=== PATIENT | male | born 1955 | race Caucasian/White ===

== ENCOUNTER 2019-02-17 01:40 | Inpatient (IN) | payer MEDICARE, MEDICAID ==
[~2019-02-17] VITALS: Ht 167.6 cm; Wt 42.0 kg
[2019-02-17 02:49] LABS: Basophils # (auto) 0 uL; Basophils % (auto) 0.2 % (0.0-2.0); Eosinophils # (auto) 0.2 uL; Eosinophils % (auto) 1.8 % (0.0-7.0); Hematocrit 41.1 % (41.0-53.0); Hemoglobin 14.1 g/dL (13.5-17.5); Lymphocytes # (auto) 0.3 uL; Lymphocytes % (auto) 3.5 % (10.0-50.0); Mean Corpuscular Hemoglobin 31.6 pg (28.0-32.0); Mean Corpuscular Hgb Conc. 34.2 g/dL (32.0-36.0); Mean Corpuscular Volume 92.4 fL (80.0-100.0); Monocytes # (auto) 0.2 uL; Monocytes % (auto) 2.3 % (0.0-12.0); Neutrophils # (auto) 8.6 uL; Neutrophils % (auto) 92.2 % (37.0-80.0); Platelet Count (auto) 198 10^3/uL (140-450); Red Blood Cells 4.45 10^6/uL (4.5-5.90); Red Cell Distribution Width 15.4 % (11.8-14.3); White Blood Cell 9.3 10^3/uL (4.4-10.8)
[2019-02-17] MEDS ORDERED: ALBUTEROL SULF 2.5 MG/0.5ML(0.5%) NEB SOLN NEB STA (03:08)
[2019-02-17 03:09] LABS: Partial Thromboplastin Time 45.2 sec (23.64-32.05)
[2019-02-17 03:10] LABS: Alanine Aminotransferase 484 U/L (16-61); Albumin 3.3 g/dL (3.4-5.0); Anion Gap 8 (5-15); Aspartate Aminotransferase 208 U/L (15-37); BUN/Creatinine Ratio 51.9; Blood Urea Nitrogen 27 mg/dL (7-18); Calcium 8.5 mg/dL (8.5-10.1); Carbon Dioxide 25 mmol/L (21-32); Chloride 99 mmol/L (98-107); GFR African American 208 mL/min; GFR Non-African American 172 mL/min; Glucose 90 mg/dL (74-106); Potassium 3.8 mmol/L (3.5-5.1); Sodium 132 mmol/L (136-145)
[2019-02-17 03:14] LABS: INR 5.95 (0.9-1.15)
[2019-02-17 03:15] LABS: Alkaline Phosphatase 402 U/L (45-117); Bilirubin, Total 3.6 mg/dL (0.2-1.0); Total Protein 7.9 g/dL (6.4-8.2)
[2019-02-17] MEDS ORDERED: IPRATROPIUM BROM 0.5 MG/2.5ML INH SOL NEB ONE (03:15)
[2019-02-17 05:55] LABS: Urine Bacteria MANY /hpf (None Seen); Urine Blood Negative /uL (Negative); Urine Hyaline Cast MOD /lpf (0 - 2); Urine Mucus FEW (None Seen); Urine Specific Gravity 1.023 (1.001-1.035); Urine WBC 662 /hpf (0 - 3); Urine WBC Clumps PRESENT /hpf (None Seen)
[2019-02-17] MEDS ORDERED: SODIUM CHLORIDE 0.9% 1,000 ML IV ONE (09:03)
[2019-02-17] MEDS ORDERED: FUROSEMIDE 20 MG/2 ML VIAL IV ONE (09:15)
[2019-02-17] MEDS ORDERED: cefTRIAXone 1GM/50ML D5W 50 ML IV ONE (09:15)
[2019-02-17] MEDS ORDERED: AZITHROMYCIN 500MG/ 250ML 250 ML IV ONE (09:15)
[2019-02-17] MEDS ORDERED: IOHEXOL 300 MG/ML 100ML BOTTLE IJ ONE (10:11)
[2019-02-17] MEDS ORDERED: SACC250C GT (12:32)
[2019-02-17] MEDS ORDERED: GABA300C10 GT (12:32)
[2019-02-17] MEDS ORDERED: AMOX250C3 GT (12:32)
[2019-02-17] MEDS ORDERED: BACL20TA GT (12:32)
[2019-02-17] MEDS ORDERED: SIMV10TA84 GT (12:32)
[2019-02-17] MEDS ORDERED: GEMF600T7 GT (12:32)
[2019-02-17] MEDS ORDERED: HYDR-531 PO (12:32)
[2019-02-17] MEDS ORDERED: IBUP800T24 GT (12:32)
[2019-02-17] MEDS ORDERED: DIAZ10TA3 GT (12:32)
[2019-02-17] MEDS ORDERED: WARF3TAB22 GT (12:32)
[2019-02-17] MEDS ORDERED: POLY33504 GT (12:32)
[2019-02-17] MEDS ORDERED: MORPHINE SULF INJ 2 MG/ML SYRINGE 1ML IV PRN (13:00)
[2019-02-17] MEDS ORDERED: NITROGLYCERIN 0.4 MG SL TAB SL PRN (13:00)
[2019-02-17] MEDS ORDERED: SODIUM CHLORIDE 0.9% 500 ML IV ONE (13:00)
[2019-02-17] MEDS ORDERED: VANCOMYCIN PER PHARMACY 0 MG IV SCH (13:00)
[2019-02-17] MEDS ORDERED: ONDANSETRON HCL 4 MG/2 ML VIAL IV PRN (14:00)
[2019-02-17] MEDS: IPRATROPIUM BROM 0.5 MG/2.5ML INH SOL NEB SCH ×3 (14:17→22:12)
[2019-02-17] MEDS: ALBUTEROL SULF 2.5 MG/0.5ML(0.5%) NEB SOLN NEB SCH ×3 (14:17→22:12)
[2019-02-17] MEDS: D5W/SOD CHL 0.45%/KCL 20MEQ 1,000 ML IV SCH (14:25)
[2019-02-17 14:40] VITALS: BP 96/66
[2019-02-17] MEDS: VANCOMYCIN 1GM/250ML 250 ML IV SCH ×2 (15:42→22:41)
[2019-02-17] MEDS ORDERED: ACETAMINOPHEN 650 MG RECT SUPP PR ONE (16:00)
[2019-02-17] MEDS: PIPERACILLIN-TAZOB 3.375GM 100 ML IV SCH ×2 (18:30→23:39)
[2019-02-17 22:47] VITALS: BP 123/69
[2019-02-17] MEDS: MORPHINE SULFATE 4 MG/ML SYR/VIAL IV PRN (23:31)
[2019-02-18] VITALS (7 sets, daily range): BP systolic 110–133; BP diastolic 58–82
[2019-02-18] MEDS: IPRATROPIUM BROM 0.5 MG/2.5ML INH SOL NEB SCH ×6 (02:08→22:26)
[2019-02-18] MEDS: ALBUTEROL SULF 2.5 MG/0.5ML(0.5%) NEB SOLN NEB SCH ×6 (02:08→22:26)
[2019-02-18] MEDS: VANCOMYCIN 1GM/250ML 250 ML IV SCH ×3 (06:09→21:10)
[2019-02-18 06:25] LABS: Hematocrit 37.9 % (41.0-53.0); Hemoglobin 13.6 g/dL (13.5-17.5); Mean Corpuscular Hemoglobin 32.4 pg (28.0-32.0); Mean Corpuscular Hgb Conc. 35.8 g/dL (32.0-36.0); Mean Corpuscular Volume 90.6 fL (80.0-100.0); Platelet Count (auto) 175 10^3/uL (140-450); Red Blood Cells 4.19 10^6/uL (4.5-5.90); White Blood Cell 9.6 10^3/uL (4.4-10.8)
[2019-02-18 06:36] LABS: Albumin 2.6 g/dL (3.4-5.0); Potassium 3.9 mmol/L (3.5-5.1)
[2019-02-18 06:38] LABS: Basophils % (manual) 0 (0.0-2.0); Blast Cells 0; Eosinophils % (manual) 0 (0-7); Metamyelocytes % 0; Myelocytes % 0; Promyelocytes % 0; Reactive Lymphocytes 0
[2019-02-18 06:42] LABS: BUN/Creatinine Ratio 40.9; Bilirubin, Total 4.1 mg/dL (0.2-1.0); Calcium 8.1 mg/dL (8.5-10.1); Total Protein 7.1 g/dL (6.4-8.2)
[2019-02-18] MEDS ORDERED: INFLUENZA QUAD 2019-2020 0.5ml SYRG IM ONE (07:15)
[2019-02-18] MEDS: PIPERACILLIN-TAZOB 3.375GM 100 ML IV SCH ×4 (07:36→23:19)
[2019-02-18 09:15] LABS: Band Neutrophils % (manual) 36; Lymphocytes % (manual) 7 (10.0-50.0); Monocytes % (manual) 3 (0-12)
[2019-02-18] MEDS: D5W/SOD CHL 0.45%/KCL 20MEQ 1,000 ML IV SCH ×2 (10:00→11:54)
[2019-02-18] MEDS: LACTULOSE 20Gm/30ML SOLN GT SCH (11:53)
[2019-02-18 13:41] LABS: Partial Thromboplastin Time 67.2 sec (23.64-32.05)
[2019-02-18 13:56] LABS: INR 6.99 (0.9-1.15)
[2019-02-18] MEDS: MORPHINE SULFATE 4 MG/ML SYR/VIAL IV PRN (18:42)
[2019-02-18] MEDS ORDERED: FUROSEMIDE 40 MG/4 ML VIAL IV ONE (19:45)
[2019-02-18] MEDS ORDERED: FINA5TAB4 PO (22:19)
[2019-02-19] MEDS: IPRATROPIUM BROM 0.5 MG/2.5ML INH SOL NEB SCH ×6 (02:00→22:31)
[2019-02-19] MEDS: ALBUTEROL SULF 2.5 MG/0.5ML(0.5%) NEB SOLN NEB SCH ×6 (02:00→22:31)
[2019-02-19 04:02] VITALS: BP 115/64
[2019-02-19] MEDS: MORPHINE SULFATE 4 MG/ML SYR/VIAL IV PRN ×2 (05:14→15:37)
[2019-02-19] MEDS: VANCOMYCIN 1GM/250ML 250 ML IV SCH ×2 (05:16→14:00)
[2019-02-19] MEDS: D5W/SOD CHL 0.45%/KCL 20MEQ 1,000 ML IV SCH ×3 (06:00→15:52)
[2019-02-19] MEDS: PIPERACILLIN-TAZOB 3.375GM 100 ML IV SCH ×3 (07:25→17:20)
[2019-02-19 08:00] VITALS: BP 122/69
[2019-02-19] MEDS: LACTULOSE 20Gm/30ML SOLN GT SCH (09:30)
[2019-02-19 10:06] LABS: BUN/Creatinine Ratio 26.1; Calcium 8.6 mg/dL (8.5-10.1)
[2019-02-19 10:15] LABS: Potassium 2.9 mmol/L (3.5-5.1)
[2019-02-19] MEDS ORDERED: FINASTERIDE 5 MG TAB GT ONE (10:30)
[2019-02-19] MEDS ORDERED: POTASSIUM EFFERVESENT TAB 25 MEQ PO ONE (10:30)
[2019-02-19 12:00] VITALS: BP 124/70
[2019-02-19] MEDS ORDERED: Jevity 1.2 Cal/Fiber 1 Liter GT SCH (15:00)
[2019-02-19 16:00] VITALS: BP 129/75
[2019-02-19] MEDS: GEMFIBROZIL 600 MG TAB GT SCH (22:10)
[2019-02-19] MEDS: GABAPENTIN 300 MG CAP GT SCH (22:10)
[2019-02-19] MEDS: BACLOFEN 10 MG TAB GT SCH (22:10)
[2019-02-19] MEDS: DIAZEPAM 5 MG TAB GT SCH (22:10)
[2019-02-19 22:59] VITALS: BP 136/73
[2019-02-19] MEDS ORDERED: VANCOMYCIN 1GM/250ML 250 ML IV SCH (23:00)
[2019-02-20] MEDS: PIPERACILLIN-TAZOB 3.375GM 100 ML IV SCH ×2 (00:07→06:17)
[2019-02-20] MEDS: D5W/SOD CHL 0.45%/KCL 20MEQ 1,000 ML IV SCH ×2 (02:00→13:16)
[2019-02-20] MEDS: ALBUTEROL SULF 2.5 MG/0.5ML(0.5%) NEB SOLN NEB SCH ×3 (02:38→22:24)
[2019-02-20] MEDS: IPRATROPIUM BROM 0.5 MG/2.5ML INH SOL NEB SCH ×3 (02:38→22:24)
[2019-02-20 05:28] VITALS: BP 125/64
[2019-02-20 06:05] LABS: Basophils # (auto) 0 uL; Basophils % (auto) 0.2 % (0.0-2.0); Eosinophils # (auto) 0.1 uL; Eosinophils % (auto) 1.2 % (0.0-7.0); Hematocrit 36.2 % (41.0-53.0); Hemoglobin 12.4 g/dL (13.5-17.5); Lymphocytes # (auto) 0.9 uL; Lymphocytes % (auto) 11.6 % (10.0-50.0); Mean Corpuscular Hemoglobin 31.4 pg (28.0-32.0); Mean Corpuscular Hgb Conc. 34.2 g/dL (32.0-36.0); Mean Corpuscular Volume 91.9 fL (80.0-100.0); Monocytes # (auto) 1.1 uL; Monocytes % (auto) 13.8 % (0.0-12.0); Neutrophils # (auto) 5.7 uL; Neutrophils % (auto) 73.2 % (37.0-80.0); Platelet Count (auto) 218 10^3/uL (140-450); Red Blood Cells 3.94 10^6/uL (4.5-5.90); Red Cell Distribution Width 15.6 % (11.8-14.3); White Blood Cell 7.8 10^3/uL (4.4-10.8)
[2019-02-20 06:24] LABS: BUN/Creatinine Ratio 23.1; Calcium 8.5 mg/dL (8.5-10.1); Potassium 3.2 mmol/L (3.5-5.1)
[2019-02-20 09:00] VITALS: BP 119/67
[2019-02-20] MEDS: BACLOFEN 10 MG TAB GT SCH ×2 (09:53→22:00)
[2019-02-20] MEDS: LACTULOSE 20Gm/30ML SOLN GT SCH (09:53)
[2019-02-20] MEDS: FLORASTOR (S. BOULARDII) 250 MG CAP GT SCH (09:53)
[2019-02-20] MEDS: GABAPENTIN 300 MG CAP GT SCH ×2 (09:53→22:00)
[2019-02-20] MEDS: GEMFIBROZIL 600 MG TAB GT SCH ×2 (09:53→22:00)
[2019-02-20] MEDS: DIAZEPAM 5 MG TAB GT SCH ×2 (09:54→22:00)
[2019-02-20] MEDS: FINASTERIDE 5 MG TAB GT SCH (09:54)
[2019-02-20] MEDS ORDERED: LEVOFLOXACIN 500MG 100 ML IV ONE (10:15)
[2019-02-20 13:00] VITALS: BP 119/62
[2019-02-20 17:00] VITALS: BP 118/59
[2019-02-20 19:33] VITALS: BP 118/59
[2019-02-20] MEDS: MORPHINE SULFATE 4 MG/ML SYR/VIAL IV PRN (21:31)
[2019-02-20 22:00] VITALS: BP 117/57
[2019-02-20] MEDS: ACETYLCYSTEINE 20%(200MG/ML) SOL 4ML NEB SCH (22:24)
[2019-02-21] MEDS: IPRATROPIUM BROM 0.5 MG/2.5ML INH SOL NEB SCH ×6 (02:09→22:38)
[2019-02-21] MEDS: ALBUTEROL SULF 2.5 MG/0.5ML(0.5%) NEB SOLN NEB SCH ×6 (02:09→22:38)
[2019-02-21] MEDS: D5W/SOD CHL 0.45%/KCL 20MEQ 1,000 ML IV SCH ×3 (02:32→18:00)
[2019-02-21 05:00] VITALS: BP 125/66
[2019-02-21] MEDS: ACETYLCYSTEINE 20%(200MG/ML) SOL 4ML NEB SCH ×3 (06:23→22:38)
[2019-02-21 09:00] VITALS: BP 126/73
[2019-02-21] MEDS: FLORASTOR (S. BOULARDII) 250 MG CAP GT SCH (09:50)
[2019-02-21] MEDS: LACTULOSE 20Gm/30ML SOLN GT SCH (09:50)
[2019-02-21] MEDS: BACLOFEN 10 MG TAB GT SCH ×2 (09:50→19:34)
[2019-02-21] MEDS: GABAPENTIN 300 MG CAP GT SCH ×2 (09:51→19:35)
[2019-02-21] MEDS: DIAZEPAM 5 MG TAB GT SCH ×2 (09:51→19:35)
[2019-02-21] MEDS: GEMFIBROZIL 600 MG TAB GT SCH ×2 (09:51→19:35)
[2019-02-21] MEDS: FINASTERIDE 5 MG TAB GT SCH (09:51)
[2019-02-21] MEDS: LEVOFLOXACIN 500MG 100 ML IV SCH (09:58)
[2019-02-21] MEDS: MORPHINE SULFATE 4 MG/ML SYR/VIAL IV PRN ×2 (11:33→19:59)
[2019-02-21 13:00] VITALS: BP 138/75
[2019-02-21 17:00] VITALS: BP 131/75
[2019-02-21] MEDS ORDERED: PPN PER PHARMACY 0 ML IV SCH (17:30)
[2019-02-21 19:10] LABS: Calcium 8.5 mg/dL (8.5-10.1); Potassium 3.9 mmol/L (3.5-5.1)
[2019-02-21 19:18] LABS: Albumin 2.1 g/dL (3.4-5.0); BUN/Creatinine Ratio 43.2; Bilirubin, Total 3.2 mg/dL (0.2-1.0); Magnesium 2.3 mg/dL (1.6-2.6); Phosphorus 2.1 mg/dL (2.5-4.90); Pre Albumin 9.3 mg/dL (20.0-40.0)
[2019-02-21] MEDS ORDERED: AMINO ACID INFUSION IN D10W 1,000 ML IV ONE (20:00)
[2019-02-21] MEDS ORDERED: SODIUM PHOSP 20MEQ(15MMOL) IN NS 100 ML IV ONE (20:15)
[2019-02-21 22:00] VITALS: BP 110/64
[2019-02-22] MEDS ORDERED: DEXTROSE (50%) 50ML SYRG IV SCH
[2019-02-22] MEDS: IPRATROPIUM BROM 0.5 MG/2.5ML INH SOL NEB SCH ×6 (01:57→22:05)
[2019-02-22] MEDS: ALBUTEROL SULF 2.5 MG/0.5ML(0.5%) NEB SOLN NEB SCH ×6 (01:57→22:05)
[2019-02-22] MEDS: D5W/SOD CHL 0.45%/KCL 20MEQ 1,000 ML IV SCH ×3 (04:00→20:00)
[2019-02-22 04:46] VITALS: BP 113/69
[2019-02-22 05:48] LABS: Albumin 2.2 g/dL (3.4-5.0); BUN/Creatinine Ratio 41.7; Calcium 8.1 mg/dL (8.5-10.1); Magnesium 2.3 mg/dL (1.6-2.6); Potassium 3.6 mmol/L (3.5-5.1)
[2019-02-22 05:51] LABS: Bilirubin, Total 2.7 mg/dL (0.2-1.0); Total Protein 6.9 g/dL (6.4-8.2)
[2019-02-22] MEDS: InsuLIN REG 1unit/0.01ml Soln (100units/ml) SC SCH ×4 (06:00→17:38)
[2019-02-22] MEDS: ACCU-CHEK COMFORT CURVE STRIP VI SCH ×4 (06:14→17:38)
[2019-02-22] MEDS: ACETYLCYSTEINE 20%(200MG/ML) SOL 4ML NEB SCH ×3 (07:07→22:05)
[2019-02-22 08:59] LABS: INR > 8.0 (0.9-1.15)
[2019-02-22 09:00] VITALS: BP 133/67
[2019-02-22] MEDS: BACLOFEN 10 MG TAB GT SCH ×2 (10:00→21:22)
[2019-02-22] MEDS: LACTULOSE 20Gm/30ML SOLN GT SCH (10:00)
[2019-02-22] MEDS ORDERED: PHYTONADIONE (VIT K)10 MG/ML 1ML VIAL SUBCUT ONE (10:00)
[2019-02-22] MEDS: LEVOFLOXACIN 500MG 100 ML IV SCH (10:00)
[2019-02-22] MEDS: DIAZEPAM 5 MG TAB GT SCH ×2 (10:00→21:24)
[2019-02-22] MEDS: FINASTERIDE 5 MG TAB GT SCH (10:00)
[2019-02-22] MEDS: FLORASTOR (S. BOULARDII) 250 MG CAP GT SCH (10:00)
[2019-02-22] MEDS: GABAPENTIN 300 MG CAP GT SCH ×2 (10:00→21:24)
[2019-02-22] MEDS: GEMFIBROZIL 600 MG TAB GT SCH ×2 (10:00→21:23)
[2019-02-22 13:00] VITALS: BP 138/68
[2019-02-22] MEDS: MORPHINE SULFATE 4 MG/ML SYR/VIAL IV PRN (16:30)
[2019-02-22 17:00] VITALS: BP 132/63
[2019-02-22] MEDS ORDERED: PPN PER PHARMACY IV NR ×9 (20:00)
[2019-02-22 22:00] VITALS: BP 125/76
[2019-02-23] MEDS: ALBUTEROL SULF 2.5 MG/0.5ML(0.5%) NEB SOLN NEB SCH ×6 (04:07→22:57)
[2019-02-23] MEDS: IPRATROPIUM BROM 0.5 MG/2.5ML INH SOL NEB SCH ×6 (04:07→22:57)
[2019-02-23 05:00] VITALS: BP 119/58
[2019-02-23] MEDS: InsuLIN REG 1unit/0.01ml Soln (100units/ml) SC SCH ×4 (06:00→18:00)
[2019-02-23] MEDS: ACCU-CHEK COMFORT CURVE STRIP VI SCH ×4 (06:00→18:10)
[2019-02-23 06:31] LABS: Albumin 2.2 g/dL (3.4-5.0); BUN/Creatinine Ratio 66.7; Calcium 8.3 mg/dL (8.5-10.1); Magnesium 2.3 mg/dL (1.6-2.6); Potassium 3.3 mmol/L (3.5-5.1)
[2019-02-23 06:33] LABS: Bilirubin, Total 4.3 mg/dL (0.2-1.0); Phosphorus 2.2 mg/dL (2.5-4.90); Total Protein 6.8 g/dL (6.4-8.2)
[2019-02-23] MEDS: ACETYLCYSTEINE 20%(200MG/ML) SOL 4ML NEB SCH ×3 (07:11→22:57)
[2019-02-23 08:46] VITALS: BP 132/66
[2019-02-23] MEDS ORDERED: BACTRIM 5MG/KG Q8HR PER RX 0 ML IV SCH (09:00)
[2019-02-23] MEDS: GEMFIBROZIL 600 MG TAB GT SCH ×2 (09:40→22:00)
[2019-02-23] MEDS: LEVOFLOXACIN 500MG 100 ML IV SCH (09:40)
[2019-02-23] MEDS: GABAPENTIN 300 MG CAP GT SCH ×2 (09:40→22:00)
[2019-02-23] MEDS: FINASTERIDE 5 MG TAB GT SCH (09:40)
[2019-02-23] MEDS: DIAZEPAM 5 MG TAB GT SCH ×2 (09:40→22:00)
[2019-02-23] MEDS: FLORASTOR (S. BOULARDII) 250 MG CAP GT SCH (09:41)
[2019-02-23] MEDS: BACLOFEN 10 MG TAB GT SCH ×2 (09:41→22:00)
[2019-02-23] MEDS: LACTULOSE 20Gm/30ML SOLN GT SCH (09:41)
[2019-02-23] MEDS: SULFAMETH-TRIMETH 80/16MG-ML 10 ML in D5W 5% 250 ML IV SCH ×2 (10:43→22:09)
[2019-02-23] MEDS: MORPHINE SULFATE 4 MG/ML SYR/VIAL IV PRN ×3 (10:51→22:43)
[2019-02-23] MEDS ORDERED: POTASSIUM PHOSPHATE 22 MEQ in SODIUM CHL 0.9% 100 ML IV ONE (11:00)
[2019-02-23 13:00] VITALS: BP 136/76
[2019-02-23] MEDS: D5W/SOD CHL 0.45%/KCL 20MEQ 1,000 ML IV SCH (16:06)
[2019-02-23 16:53] VITALS: BP 132/65
[2019-02-23] MEDS ORDERED: TPN PER PHARMACY IV NR ×7 (20:00)
[2019-02-23] MEDS ORDERED: PPN PER PHARMACY IV NR ×7 (20:00)
[2019-02-23 21:30] VITALS: BP 132/65
[2019-02-23 22:00] VITALS: BP 145/84
[2019-02-24] MEDS: ACCU-CHEK COMFORT CURVE STRIP VI SCH ×4 (00:21→18:31)
[2019-02-24] MEDS: InsuLIN REG 1unit/0.01ml Soln (100units/ml) SC SCH ×4 (00:21→18:00)
[2019-02-24] MEDS: IPRATROPIUM BROM 0.5 MG/2.5ML INH SOL NEB SCH ×6 (02:32→22:24)
[2019-02-24] MEDS: ALBUTEROL SULF 2.5 MG/0.5ML(0.5%) NEB SOLN NEB SCH ×6 (02:32→22:24)
[2019-02-24 05:00] VITALS: BP 135/70
[2019-02-24 05:54] LABS: Albumin 2.2 g/dL (3.4-5.0); BUN/Creatinine Ratio 45.7; Magnesium 2.2 mg/dL (1.6-2.6); Potassium 3.9 mmol/L (3.5-5.1)
[2019-02-24 06:05] LABS: Bilirubin, Total 2.7 mg/dL (0.2-1.0); Total Protein 6.7 g/dL (6.4-8.2)
[2019-02-24 06:08] LABS: Phosphorus 2.4 mg/dL (2.5-4.90)
[2019-02-24] MEDS: MORPHINE SULFATE 4 MG/ML SYR/VIAL IV PRN (06:09)
[2019-02-24] MEDS: ACETYLCYSTEINE 20%(200MG/ML) SOL 4ML NEB SCH ×3 (06:30→22:24)
[2019-02-24 09:00] VITALS: BP 127/63
[2019-02-24] MEDS: DIAZEPAM 5 MG TAB GT SCH ×2 (10:00→22:00)
[2019-02-24] MEDS: LACTULOSE 20Gm/30ML SOLN GT SCH (10:00)
[2019-02-24] MEDS: BACLOFEN 10 MG TAB GT SCH ×2 (10:00→22:00)
[2019-02-24] MEDS: GABAPENTIN 300 MG CAP GT SCH ×2 (10:00→22:00)
[2019-02-24] MEDS: FLORASTOR (S. BOULARDII) 250 MG CAP GT SCH (10:00)
[2019-02-24] MEDS: FINASTERIDE 5 MG TAB GT SCH (10:00)
[2019-02-24] MEDS: GEMFIBROZIL 600 MG TAB GT SCH ×2 (10:00→22:00)
[2019-02-24] MEDS: LEVOFLOXACIN 500MG 100 ML IV SCH (11:19)
[2019-02-24] MEDS: D5W/SOD CHL 0.45%/KCL 20MEQ 1,000 ML IV SCH (11:46)
[2019-02-24 13:12] VITALS: BP 118/68
[2019-02-24] MEDS: SULFAMETH-TRIMETH 80/16MG-ML 10 ML in D5W 5% 250 ML IV SCH ×2 (13:39→22:18)
[2019-02-24] MEDS: MORPHINE SULF INJ 2 MG/ML SYRINGE 1ML IV PRN ×2 (13:39→17:30)
[2019-02-24 17:00] VITALS: BP 141/67
[2019-02-24] MEDS ORDERED: MORPHINE SULFATE 4 MG/ML SYR/VIAL IV PRN (18:45)
[2019-02-24] MEDS ORDERED: MORPHINE SULFATE 4 MG/ML SYR/VIAL IV ONE (18:45)
[2019-02-24] MEDS ORDERED: MORPHINE SULF INJ 2 MG/ML SYRINGE 1ML IV ONE (19:30)
[2019-02-24] MEDS ORDERED: PPN PER PHARMACY IV NR ×10 (20:00)
[2019-02-24 21:48] VITALS: BP 127/67
[2019-02-25] MEDS: ACCU-CHEK COMFORT CURVE STRIP VI SCH ×3 (00:09→11:59)
[2019-02-25] MEDS: InsuLIN REG 1unit/0.01ml Soln (100units/ml) SC SCH ×3 (00:09→11:59)
[2019-02-25] MEDS: MORPHINE SULF INJ 2 MG/ML SYRINGE 1ML IV PRN ×2 (00:10→12:03)
[2019-02-25] MEDS: ALBUTEROL SULF 2.5 MG/0.5ML(0.5%) NEB SOLN NEB SCH ×4 (03:04→13:54)
[2019-02-25] MEDS: IPRATROPIUM BROM 0.5 MG/2.5ML INH SOL NEB SCH ×4 (03:04→13:54)
[2019-02-25 05:16] VITALS: BP 130/72
[2019-02-25] MEDS: ACETYLCYSTEINE 20%(200MG/ML) SOL 4ML NEB SCH ×2 (06:19→13:55)
[2019-02-25 06:27] LABS: Albumin 2.3 g/dL (3.4-5.0); Calcium 8.3 mg/dL (8.5-10.1); Magnesium 2.2 mg/dL (1.6-2.6); Potassium 4.1 mmol/L (3.5-5.1)
[2019-02-25 06:32] LABS: BUN/Creatinine Ratio 42.1; Bilirubin, Total 2.6 mg/dL (0.2-1.0); Phosphorus 3.2 mg/dL (2.5-4.90)
[2019-02-25 09:00] VITALS: BP 140/81
[2019-02-25] MEDS: LACTULOSE 20Gm/30ML SOLN GT SCH (10:00)
[2019-02-25] MEDS: GABAPENTIN 300 MG CAP GT SCH (10:00)
[2019-02-25] MEDS: BACLOFEN 10 MG TAB GT SCH (10:00)
[2019-02-25] MEDS: GEMFIBROZIL 600 MG TAB GT SCH (10:00)
[2019-02-25] MEDS: DIAZEPAM 5 MG TAB GT SCH (10:00)
[2019-02-25] MEDS: FINASTERIDE 5 MG TAB GT SCH (10:00)
[2019-02-25] MEDS: FLORASTOR (S. BOULARDII) 250 MG CAP GT SCH (10:00)
[2019-02-25] MEDS: SULFAMETH-TRIMETH 80/16MG-ML 10 ML in D5W 5% 250 ML IV SCH (10:03)
[2019-02-25] MEDS: LEVOFLOXACIN 500MG 100 ML IV SCH (10:04)
[2019-02-25 13:00] VITALS: BP 146/69
[2019-02-25 13:30] VITALS: BP 140/81
[2019-02-25] MEDS ORDERED: PPN PER PHARMACY IV NR ×11 (20:00)
== END 2019-02-25 15:36 | disposition short-term general hospital (02) | DRG 871 ==
LOC: EDBD 01:40 → ER 01:47 → TELE 01:48 → DOU IN ICU 21:30 → WEST WING 02-19 17:29 → TELE-WESTW 02-20 01:18
PROVIDERS: ADMIT Nurse Practitioner Acute Care; ATTEND Family Medicine
DX: A41.9 Sepsis, unspecified organism (principal); I50.43 Acute on chronic combined systolic (congestive) and diastolic (congestive) heart failure; G93.41 Metabolic encephalopathy; G82.50 Quadriplegia, unspecified; J96.01 Acute respiratory failure with hypoxia; J18.1 Lobar pneumonia, unspecified organism; S42.343A Displaced spiral fracture of shaft of humerus, unspecified arm, initial encounter for closed fracture; N39.0 Urinary tract infection, site not specified; R47.01 Aphasia; E86.0 Dehydration; K59.00 Constipation, unspecified; I11.0 Hypertensive heart disease with heart failure; I70.8 Atherosclerosis of other arteries; N20.0 Calculus of kidney; K80.70 Calculus of gallbladder and bile duct without cholecystitis without obstruction; X58.XXXA Exposure to other specified factors, initial encounter; Z79.01 Long term (current) use of anticoagulants; Z93.1 Gastrostomy status; Z74.01 Bed confinement status; Z82.49 Family history of ischemic heart disease and other diseases of the circulatory system; Z87.891 Personal history of nicotine dependence; Z87.820 Personal history of traumatic brain injury; Z79.899 Other long term (current) drug therapy; Y93.89 Activity, other specified; Y92.89 Other specified places as the place of occurrence of the external cause; Y99.8 Other external cause status; Z28.21 Immunization not carried out because of patient refusal
CPT/HCPCS: 36415; 71045; 73060; 73070; 74177; 76705; 80048; 80053; 80061; 80202; 81001; 82040; 82962; 83605; 83735; 83880; 84100; 84478; 84484; 85007; 85025; 85027; 85610; 85730; 87040; 87086; 87088; 87186; 87804; 93005; 94640; 96361; 96365; 96367; 96375; 99291; G0378; J0696; J1815; J1956; J2543; J3430; J3490; J7060; J7131